=== PATIENT | male | born 1970 | race Caucasian/White ===

== ENCOUNTER 2019-07-07 13:05 | Emergency (ER) | payer OTHER, BC ==
[2019-07-07] MEDS ORDERED: CEPHALEXIN500 M1 PO (14:38)
[2019-07-07] MEDS ORDERED: NORCO 325 MG-51 TA1 PO (14:38)
[2019-07-07 15:09] VITALS: BP 158/80
== END 2019-07-07 15:05 | disposition home or self-care (01) ==
LOC: ED 13:05
DX: S81.812A Laceration without foreign body, left lower leg, initial encounter (principal); F17.210 Nicotine dependence, cigarettes, uncomplicated; Z23 Encounter for immunization; V29.9XXA Motorcycle rider (driver) (passenger) injured in unspecified traffic accident, initial encounter; Y93.55 Activity, bike riding; Y92.410 Unspecified street and highway as the place of occurrence of the external cause
CPT/HCPCS: 90715; J1885; J3010